=== PATIENT | female | born 1945 | race Hispanic/Latino ===

== ENCOUNTER → 2017-08-26 | Outpatient (CLI) | payer MEDICARE ==
[~2017-08-26] MED LIST: ALEN70TA47 PO; ASCO500T9 PO; BIOT25008 PO; BUME2TAB18 PO; CALC-1034 PO; CRAN1CAP10 PO; ENAL20TA PO; MULT-40 PO; OMEG1CAP83 PO
== END | disposition home or self-care (01) ==
LOC: SHCH 10:42
PROVIDERS: ATTEND Internal Medicine Cardiovascular Disease
DX: I35.8 Other nonrheumatic aortic valve disorders (principal); I11.0 Hypertensive heart disease with heart failure; I50.9 Heart failure, unspecified; E11.9 Type 2 diabetes mellitus without complications; E78.5 Hyperlipidemia, unspecified; E03.9 Hypothyroidism, unspecified; M81.0 Age-related osteoporosis without current pathological fracture
CPT/HCPCS: 93306

== ENCOUNTER → 2021-01-27 | Outpatient (CLI) | payer OTHER, MEDICARE ==
[~2021-01-27] VITALS: Ht 149.9 cm; Wt 107.0 kg
[~2021-01-27] MED LIST changes: -ALEN70TA47 PO; +ALEN70TA80 PO; +ASCO500T20 PO; -ASCO500T9 PO; -BUME2TAB18 PO; +BUME2TAB5 PO; -ENAL20TA PO; +ENAL20TA18 PO
[2021-01-27] MEDS: REGADENOSON 0.4 MG/5 ML PF SYG IVP SCH (13:29)
== END | disposition home or self-care (01) ==
LOC: SHCH 10:00
PROVIDERS: ATTEND Internal Medicine Cardiovascular Disease
DX: I20.9 Angina pectoris, unspecified (principal); R06.09 Other forms of dyspnea; R94.39 Abnormal result of other cardiovascular function study
CPT/HCPCS: 78452; 93017; 96374; A9500 ×2; J2785